=== PATIENT | male | born 1970 | race Two or more races ===

== ENCOUNTER 2021-11-26 21:59 | Emergency (ER) | payer SELFPAY ==
[~2021-11-26] VITALS: Ht 170.2 cm; Wt 81.2 kg
[2021-11-26 22:26] VITALS: BP 149/95
[2021-11-26 23:13] LABS: Eosinophils # (auto) 0.2 10 ^3/uL (0-0.8); Lymphocytes # (auto) 1.5 10 ^3/uL (0.4-5.4); Mean Corpuscular Hgb Conc. 34.3 g/dL (32.0-36.0); Nucleated Red Blood Cells % 0.1 %
[2021-11-26 23:15] LABS: Basophils # (auto) 0.2 10 ^3/uL (0-0.2); Basophils % (auto) 3.9 % (0.0-2.0); Eosinophils % (auto) 2.7 % (0.0-7.0); Hematocrit 49.3 % (41.0-53.0); Hemoglobin 16.9 g/dL (13.5-17.5); Lymphocytes % (auto) 24.1 % (10.0-50.0); Mean Corpuscular Hemoglobin 27.1 pg (28.0-32.0); Mean Corpuscular Volume 79.1 fL (80.0-100.0); Monocytes # (auto) 0.4 10 ^3/uL (0-1.3); Monocytes % (auto) 6.1 % (0.0-12.0); Neutrophils % (auto) 63.2 % (37.0-80.0); Red Blood Cells 6.24 10^6/uL (4.5-5.90); Red Cell Distribution Width 14.5 % (11.8-14.3); White Blood Cell 6.3 10^3/uL (4.4-10.8)
[2021-11-26 23:32] LABS: Albumin 4.1 g/dL (3.4-5.0); BUN/Creatinine Ratio 11.9; Calcium 9.5 mg/dL (8.5-10.1); Potassium 3.8 mmol/L (3.5-5.1)
[2021-11-26 23:34] LABS: Bilirubin, Total 0.9 mg/dL (0.2-1.0)
[2021-11-27 05:11] LABS: Urine Bacteria NONE SEEN /hpf (None Seen); Urine Blood Negative /uL (Negative); Urine Specific Gravity 1.041 (1.001-1.035); Urine WBC <1 /hpf (0 - 3)
[2021-11-27] MEDS ORDERED: ONDANSETRON ODT 4 MG TAB PO ONE (06:30)
[2021-11-27] MEDS ORDERED: FAMOTIDINE 20 MG TAB PO ONE (06:30)
[2021-11-27] MEDS ORDERED: LIDOCAINE VISCOUS 2% 15ML UD PO ONE (06:30)
[2021-11-27] MEDS ORDERED: ALUM & MAG HYDROX-SIMETH LIQ(MAALOX) 30 ML PO ONE (06:30)
== END 2021-11-27 10:56 | disposition left against medical advice (07) ==
LOC: ER 21:59
DX: R11.2 Nausea with vomiting, unspecified (principal); R42 Dizziness and giddiness; Z53.21 Procedure and treatment not carried out due to patient leaving prior to being seen by health care provider
CPT/HCPCS: 36415; 80053; 81001; 83735; 84484; 85025; 93005

== ENCOUNTER 2022-03-06 16:26 | Inpatient (IN) | payer SELFPAY ==
[~2022-03-06] VITALS: Ht 172.7 cm; Wt 86.1 kg
[2022-03-06 18:58] LABS: Urine Bacteria NONE SEEN /hpf (None Seen); Urine Blood Negative /uL (Negative); Urine Specific Gravity 1.034 (1.001-1.035); Urine WBC <1 /hpf (0 - 3)
[2022-03-06 20:18] LABS: Albumin 4.1 g/dL (3.4-5.0); Calcium 9.8 mg/dL (8.5-10.1); Potassium 3.6 mmol/L (3.5-5.1)
[2022-03-06 20:23] LABS: Bilirubin, Total 6.4 mg/dL (0.2-1.0); Total Protein 8.1 g/dL (6.4-8.2)
[2022-03-06 20:28] LABS: White Blood Cell 12.7 10^3/uL (4.4-10.8)
[2022-03-06 20:30] LABS: Hematocrit 50.9 % (41.0-53.0); Hemoglobin 16.8 g/dL (13.5-17.5); Mean Corpuscular Hemoglobin 25.8 pg (28.0-32.0); Mean Corpuscular Volume 78.2 fL (80.0-100.0); Red Blood Cells 6.51 10^6/uL (4.5-5.90); Red Cell Distribution Width 13.4 % (11.8-14.3)
[2022-03-06 20:34] LABS: Basophils % (manual) 0 (0.0-2.0); Blast Cells 0; Eosinophils % (manual) 0 (0-7); Metamyelocytes % 0; Myelocytes % 0; Promyelocytes % 0; Reactive Lymphocytes 0
[2022-03-06 20:53] LABS: Band Neutrophils % (manual) 23; Lymphocytes % (manual) 5 (10.0-50.0); Monocytes % (manual) 2 (0-12)
[2022-03-06] MEDS ORDERED: MORPHINE SULFATE INJ 2 MG/ml SYRG IM ONE (23:30)
[2022-03-07] MEDS ORDERED: PIPERACILLIN-TAZO 4.5GM 100 ML IV ONE (04:45)
[2022-03-07] MEDS ORDERED: SODIUM CHLORIDE 0.9% 1,000 ML IV ONE (04:45)
[2022-03-07] MEDS ORDERED: HYDROcodone-ACET 5/325MG TAB PO PRN (09:00)
[2022-03-07] MEDS ORDERED: DEXTROSE (50%) 50ML SYRG IV PRN (09:00)
[2022-03-07] MEDS ORDERED: ACETAMINOPHEN 325 MG TAB PO PRN (09:00)
[2022-03-07] MEDS ORDERED: DOCUSATE SOD 100 MG CAP PO PRN (09:00)
[2022-03-07] MEDS ORDERED: ONDANSETRON HCL 4 MG/2 ML VIAL IV PRN (09:00)
[2022-03-07] MEDS: SODIUM CHLORIDE 0.9% 1,000 ML IV SCH ×2 (09:28→17:22)
[2022-03-07] MEDS: ENOXAPARIN SOD 40 MG/0.4 ML SYRINGE SC SCH (10:00)
[2022-03-07] MEDS: ACCU-CHEK COMFORT CURVE STRIP VI SCH ×3 (11:53→21:21)
[2022-03-07] MEDS: InsuLIN REG 1unit/0.01ml Soln (100units/ml) SC SCH ×3 (11:54→21:22)
[2022-03-07] MEDS: metroNIDAZOLE 500MG/100ML 100 ML IV SCH ×2 (14:22→21:23)
[2022-03-07 16:50] VITALS: BP 138/88
[2022-03-07] MEDS ORDERED: ASPI-498 PO (17:56)
[2022-03-07] MEDS ORDERED: LEVEMIR SC (18:01)
[2022-03-07] MEDS ORDERED: LISI40TA11 PO (18:02)
[2022-03-07] MEDS ORDERED: ATOR40TA52 PO (18:04)
[2022-03-07] MEDS ORDERED: METF-372 PO (18:05)
[2022-03-07] MEDS ORDERED: EMPA1TAB PO (18:08)
[2022-03-07] MEDS ORDERED: LINA5TAB PO (18:48)
[2022-03-07 22:00] VITALS: BP 132/92
[2022-03-08] MEDS: SODIUM CHLORIDE 0.9% 1,000 ML IV SCH ×3 (01:40→17:06)
[2022-03-08 05:00] VITALS: BP 138/86
[2022-03-08] MEDS: metroNIDAZOLE 500MG/100ML 100 ML IV SCH ×3 (05:29→21:35)
[2022-03-08 06:14] LABS: Eosinophils # (auto) 0.1 10 ^3/uL (0-0.8); Eosinophils % (auto) 0.7 % (0.0-7.0); Lymphocytes % (auto) 5.3 % (10.0-50.0); Monocytes # (auto) 0.8 10 ^3/uL (0-1.3); Red Blood Cells 5.81 10^6/uL (4.5-5.90); Red Cell Distribution Width 13.4 % (11.8-14.3)
[2022-03-08] MEDS: ACCU-CHEK COMFORT CURVE STRIP VI SCH ×4 (06:14→21:38)
[2022-03-08 06:15] LABS: Basophils # (auto) 0.1 10 ^3/uL (0-0.2); Basophils % (auto) 0.4 % (0.0-2.0); Hemoglobin 14.8 g/dL (13.5-17.5); Lymphocytes # (auto) 0.8 10 ^3/uL (0.4-5.4); Mean Corpuscular Hemoglobin 25.5 pg (28.0-32.0); Mean Corpuscular Hgb Conc. 32.3 g/dL (32.0-36.0); Mean Corpuscular Volume 79.1 fL (80.0-100.0); Monocytes % (auto) 5.7 % (0.0-12.0); Neutrophils # (auto) 12.5 10 ^3/uL (1.6-8.6); Neutrophils % (auto) 87.9 % (37.0-80.0); White Blood Cell 14.2 10^3/uL (4.4-10.8)
[2022-03-08] MEDS: InsuLIN REG 1unit/0.01ml Soln (100units/ml) SC SCH ×4 (06:19→21:45)
[2022-03-08] MEDS: MORPHINE SULFATE INJ 2 MG/ml SYRG IV PRN ×3 (06:21→21:48)
[2022-03-08 06:31] LABS: Albumin 3.1 g/dL (3.4-5.0); Calcium 8.5 mg/dL (8.5-10.1); Potassium 3.8 mmol/L (3.5-5.1)
[2022-03-08 06:33] LABS: BUN/Creatinine Ratio 21.6
[2022-03-08 06:35] LABS: Bilirubin, Total 2.1 mg/dL (0.2-1.0); Total Protein 6.2 g/dL (6.4-8.2)
[2022-03-08] MEDS: ENOXAPARIN SOD 40 MG/0.4 ML SYRINGE SC SCH (08:54)
[2022-03-08 09:00] VITALS: BP 128/87
[2022-03-08] MEDS ORDERED: ceFAZolin 1GM/50ML 100 ML IV ONE (10:06)
[2022-03-08 10:12] LABS: Partial Thromboplastin Time 31.1 sec (24.6-33.4)
[2022-03-08] MEDS ORDERED: MIDAZOLAM HCL 2MG/2ML 2ml VIAL (1mg/ml) ONE (10:13)
[2022-03-08] MEDS ORDERED: HYDROmorphone HCL 2 MG/ML VL/or syr ONE (10:13)
[2022-03-08] MEDS ORDERED: PROPOFOL 10 MG/ML 20 ML IV ONE (10:15)
[2022-03-08] MEDS ORDERED: METOCLOPRAMIDE HCL 5MG/ml INJ 2ml VIAL ONE (10:52)
[2022-03-08] MEDS ORDERED: ONDANSETRON HCL 4 MG/2 ML VIAL ONE (10:52)
[2022-03-08] MEDS ORDERED: EPINEPHrine HCL 1 MG/1 ML AMP ONE (11:10)
[2022-03-08] MEDS ORDERED: BUPIVACAINE HCL 0.25% P/F 10 ML VIAL ONE (11:10)
[2022-03-08] MEDS ORDERED: GLYCOPYRROLATE 0.2 MG/ML 1ML VIAL ONE (11:14)
[2022-03-08] MEDS ORDERED: ONDANSETRON HCL 4 MG/2 ML VIAL IV PRN (12:15)
[2022-03-08] MEDS ORDERED: HYDROmorphone HCL 2 MG/ML VL/or syr IV PRN ×2 (12:15)
[2022-03-08] MEDS ORDERED: fentaNYL CITRATE 100 MCG/2 ML VL IV PRN (12:15)
[2022-03-08 13:00] VITALS: BP 150/88
[2022-03-08] MEDS ORDERED: LISINOPRIL 10 MG TAB PO ONE (13:45)
[2022-03-08 16:50] VITALS: BP 143/98
[2022-03-08] MEDS: LISINOPRIL 10 MG TAB PO SCH (21:37)
[2022-03-08 22:00] VITALS: BP 150/99
[2022-03-09] MEDS: SODIUM CHLORIDE 0.9% 1,000 ML IV SCH ×2 (03:45→10:12)
[2022-03-09 05:00] VITALS: BP 154/93
[2022-03-09 05:26] LABS: Basophils # (auto) 0 10 ^3/uL (0-0.2); Basophils % (auto) 0.3 % (0.0-2.0); Eosinophils # (auto) 0.1 10 ^3/uL (0-0.8); Eosinophils % (auto) 0.6 % (0.0-7.0); Hematocrit 40.2 % (41.0-53.0); Hemoglobin 13.3 g/dL (13.5-17.5); Lymphocytes # (auto) 0.8 10 ^3/uL (0.4-5.4); Lymphocytes % (auto) 9.2 % (10.0-50.0); Mean Corpuscular Hgb Conc. 33.1 g/dL (32.0-36.0); Mean Corpuscular Volume 78.5 fL (80.0-100.0); Monocytes # (auto) 0.5 10 ^3/uL (0-1.3); Monocytes % (auto) 5.2 % (0.0-12.0); Neutrophils # (auto) 7.6 10 ^3/uL (1.6-8.6); Neutrophils % (auto) 84.7 % (37.0-80.0); Nucleated Red Blood Cells % 0.1 %; Red Blood Cells 5.12 10^6/uL (4.5-5.90); Red Cell Distribution Width 13.3 % (11.8-14.3)
[2022-03-09 05:43] LABS: Calcium 7.9 mg/dL (8.5-10.1); Potassium 3.3 mmol/L (3.5-5.1)
[2022-03-09] MEDS: metroNIDAZOLE 500MG/100ML 100 ML IV SCH ×3 (05:45→22:00)
[2022-03-09 05:49] LABS: Albumin 2.5 g/dL (3.4-5.0); BUN/Creatinine Ratio 14.3; Bilirubin, Total 1.6 mg/dL (0.2-1.0)
[2022-03-09] MEDS: ACCU-CHEK COMFORT CURVE STRIP VI SCH ×4 (05:50→22:01)
[2022-03-09] MEDS: InsuLIN REG 1unit/0.01ml Soln (100units/ml) SC SCH ×4 (05:57→22:16)
[2022-03-09] MEDS: cefTRIAXone 1GM/50ML D5W 50 ML IV SCH (08:54)
[2022-03-09] MEDS: ENOXAPARIN SOD 40 MG/0.4 ML SYRINGE SC SCH (08:54)
[2022-03-09] MEDS: LISINOPRIL 10 MG TAB PO SCH ×2 (08:54→22:00)
[2022-03-09 09:00] VITALS: BP 153/100
[2022-03-09] MEDS: MORPHINE SULFATE INJ 2 MG/ml SYRG IV PRN (11:21)
[2022-03-09 13:00] VITALS: BP 156/94
[2022-03-09] MEDS ORDERED: POTASSIUM CHL 20MEQ/100ML 100 ML IV ONE (15:00)
[2022-03-09 16:53] VITALS: BP 160/100
[2022-03-09 22:00] VITALS: BP 155/94
[2022-03-10 05:00] VITALS: BP 154/97
[2022-03-10] MEDS: ACCU-CHEK COMFORT CURVE STRIP VI SCH ×4 (06:04→20:58)
[2022-03-10] MEDS: metroNIDAZOLE 500MG/100ML 100 ML IV SCH ×3 (06:04→20:57)
[2022-03-10] MEDS: InsuLIN REG 1unit/0.01ml Soln (100units/ml) SC SCH ×4 (06:05→21:09)
[2022-03-10] MEDS: ENOXAPARIN SOD 40 MG/0.4 ML SYRINGE SC SCH (08:36)
[2022-03-10] MEDS: cefTRIAXone 1GM/50ML D5W 50 ML IV SCH (08:36)
[2022-03-10] MEDS: hydrALAZINE HCL 20 MG/ML VL IV PRN (08:37)
[2022-03-10] MEDS: LISINOPRIL 10 MG TAB PO SCH ×2 (08:37→20:57)
[2022-03-10 09:00] VITALS: BP 150/90
[2022-03-10] MEDS: MORPHINE SULFATE INJ 2 MG/ml SYRG IV PRN ×2 (11:00→20:55)
[2022-03-10 13:00] VITALS: BP 140/88
[2022-03-10 16:23] VITALS: BP 145/89
[2022-03-10 22:00] VITALS: BP 156/98
[2022-03-11 05:00] VITALS: BP 157/99
[2022-03-11] MEDS: metroNIDAZOLE 500MG/100ML 100 ML IV SCH ×2 (06:07→13:32)
[2022-03-11] MEDS: hydrALAZINE HCL 20 MG/ML VL IV PRN (06:07)
[2022-03-11] MEDS: ACCU-CHEK COMFORT CURVE STRIP VI SCH ×2 (06:21→12:20)
[2022-03-11] MEDS: InsuLIN REG 1unit/0.01ml Soln (100units/ml) SC SCH ×2 (06:24→12:20)
[2022-03-11 09:00] VITALS: BP 131/88
[2022-03-11] MEDS: cefTRIAXone 1GM/50ML D5W 50 ML IV SCH (09:33)
[2022-03-11] MEDS: LISINOPRIL 10 MG TAB PO SCH (09:33)
[2022-03-11] MEDS: ENOXAPARIN SOD 40 MG/0.4 ML SYRINGE SC SCH (09:33)
[2022-03-11 13:00] VITALS: BP 141/92
[2022-03-11] MEDS ORDERED: LEVEMIR SC (13:27)
[2022-03-11] MEDS: MORPHINE SULFATE INJ 2 MG/ml SYRG IV PRN (13:27)
[2022-03-11] MEDS ORDERED: METR500T PO (13:27)
[2022-03-11 13:55] VITALS: BP 131/88
== END 2022-03-11 14:49 | disposition home or self-care (01) | DRG 854 ==
LOC: ER 16:28 → OVERFLOW 03-07 08:56 → WEST WING 03-07 16:03
PROVIDERS: ADMIT Internal Medicine; ATTEND Internal Medicine
PROC: 0FT44ZZ Resection of Gallbladder, Percutaneous Endoscopic Approach (ICD-10-PCS; principal; 2022-03-08 10:22)
DX: A41.9 Sepsis, unspecified organism (principal); E87.1 Hypo-osmolality and hyponatremia; K80.00 Calculus of gallbladder with acute cholecystitis without obstruction; E11.65 Type 2 diabetes mellitus with hyperglycemia; I10 Essential (primary) hypertension; N40.0 Benign prostatic hyperplasia without lower urinary tract symptoms; K82.8 Other specified diseases of gallbladder; R74.01 Elevation of levels of liver transaminase levels; Z20.822 Contact with and (suspected) exposure to COVID-19; Z82.49 Family history of ischemic heart disease and other diseases of the circulatory system; Z83.3 Family history of diabetes mellitus
CPT/HCPCS: 36415; 74176; 76705; 80053; 81001; 82247; 82962; 83690; 85007; 85025; 85027; 85610; 85730; 86850; 86900; 86901; 87040; 93005; 96361; 96365; 96375; G0378; J0171; J0690; J0696; J1815; J2250; J2405; J2543; J2704; J3480; J3490

== ENCOUNTER 2025-04-28 10:46 | Day surgery (SDC) | payer MEDICAID ==
[2025-04-27 09:26] LABS: Nucleated Red Blood Cells % 0.1 %
[2025-04-27 09:28] LABS: Hematocrit 44.7 % (41.0-53.0); Hemoglobin 15.1 g/dL (13.5-17.5); Mean Corpuscular Hemoglobin 25.7 pg (28.0-32.0); Mean Corpuscular Volume 76.2 fL (80.0-100.0)
[2025-04-27 09:48] LABS: Alanine Aminotransferase 24 U/L (7-40); Albumin 4.6 g/dL (3.2-4.8); Alkaline Phosphatase 98 U/L (46-116); Anion Gap 10 (5-15); BUN/Creatinine Ratio 14.0 (10.0-20.0); Bilirubin, Total 0.5 mg/dL (0.2-1.0); Blood Urea Nitrogen 14 mg/dL (9-23); Carbon Dioxide 27 mmol/L (20-31); Chloride 106 mmol/L (98-107); Potassium 3.9 mmol/L (3.5-5.1); Sodium 143 mmol/L (136-145); Total Protein 7.3 g/dL (5.7-8.2)
[2025-04-27 10:14] LABS: INR 0.97 (0.9-1.15); Partial Thromboplastin Time 30.5 SEC (24.5-34.5); Prothrombin Time 10.3 sec (9.3-11.8)
[2025-04-27 10:38] LABS: Calcium 8.7 mg/dL (8.7-10.4); Glucose 138 mg/dL (74-106)
[~2025-04-28] VITALS: Ht 170.2 cm; Wt 90.7 kg
[~2025-04-28 10:46] MED LIST: ASPI-498 PO; ATOR40TA52 PO; EMPA1TAB PO; HYDR-4902 PO; LEVEMIR SC; LEVO500T31 PO; LINA5TAB PO; LISI40TA16 PO; METF-372 PO; METR500T PO
[2025-04-28] MEDS: MIDAZOLAM HCL 5 MG/ML-1ML VIAL ONE (13:56)
[2025-04-28] MEDS: fentaNYL CITRATE 100 MCG/2 ML VL ONE (13:56)
[2025-04-28 14:16] VITALS: PULSE 79; RESP 16; TEMP 99.2; O2SAT 97
--- NOTE | 2025-04-28 14:21 | DVHNC2 ---
Procedure - PROCEDURE DATE: 04/28/2025 PROCEDURE PERFORMED BY: Kristopher Adams MD REFERRING PROVIDER: [facility], NO PCP GIVEN AND PATIENT DOES NOT RECALL PROCEDURE PERFORMED: 1. COLONOSCOPY WITH MODERATE SEDATION PRE-PROCEDURE DIAGNOSIS: 1. COLON CANCER SCREENING POSTPROCEDURE DIAGNOSIS: 1. NORMAL COLONOSCOPY INDICATIONS FOR PROCEDURE: The patient is A 54-year-old male who presents for outpatient colonoscopy for screening MEDICATIONS USED: 5 mg of Versed IV and 100 mcg of fentanyl IV DETAILS OF THE PROCEDURE: Informed consent was obtained after risks benefits and alternatives were discussed at length with the patient. The patient gave consent to the procedure as well as the medication used for sedation. The patient was placed in left lateral decubitus position. Digital rectal exam showed NO ABNORMALITIES. An Olympus PEDIATRIC colonoscope was inserted into the rectum and advanced to the cecum. The cecum was identified by the ileocecal valve and the appendiceal orifice. The scope was then withdrawn. [place] bowel prep score of 7 was noted. There were no polyps, masses, strictures, or arteriovenous malformation seen. More than 6 minutes withdrawal time was noted. The patient tolerated the procedure well. START TIME: 1404 CECUM TIME: 1407 END TIME 1414 IMPRESSION: 1. NORMAL COLONOSCOPY IN AN AVERAGE RISK PATIENT RECOMMENDATIONS: 1. Follow up with the primary care physician 2. Repeat colonoscopy in 10 years unless otherwise indicated by symptoms or fa consuelo history KRISTOPHER ADAMS MD Apr 28, 2025 14:21
[2025-04-28 14:45] VITALS: BP 143/86; PULSE 86; RESP 16; O2SAT 99
== END 2025-04-28 15:00 | disposition home or self-care (01) ==
LOC: EDUNIT# → SUR 10:46
PROVIDERS: ATTEND Specialist
DX: Z12.11 Encounter for screening for malignant neoplasm of colon (principal); Z90.49 Acquired absence of other specified parts of digestive tract
CPT/HCPCS: 36415; 45378; 80053; 85025; 85610; 85730; J2250; J3010

== ENCOUNTER 2025-06-10 00:01 | Emergency (ER) | payer MEDICAID ==
[~2025-06-10] VITALS: Ht 177.8 cm; Wt 86.0 kg
--- NOTE | 2025-06-10 00:13 | ECG ---
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
--- NOTE | 2025-06-10 00:23 | ED.PDOC ---
History of Present Illness HPI Comments 54-year-old male who came to ER for generalized weakness. Patient has a history of hypertension and diabetes. States for the past 2 hours, he has been feeling generally weak and dizzy. Denies any chest pains or shortness of breath. Denies any nausea or vomiting. Upon arrival the paramedics patient's blood sugar was 64. Chief Complaint: General Weakness Time Seen by MD: 00:22 Primary Care Provider: NONE Reviewed Notes: Master Technician Notes Allergies: Coded Allergies: NO KNOWN ALLERGIES (Unverified , 03/07/22) Home Meds Active Scripts Hydrocodone-Acetaminophen (Hydrocodone Bitartrate/AC 5-325 mg) 1 Tab Tab, 1 TAB PO TID PRN, #30 TAB Prov:PURVI JOSEPH MD 04/03/22 Metronidazole (Flagyl) 500 Mg Tab, 500 MG PO TID, #30 TAB Prov:PURVI JOSEPH MD 04/03/22 Levofloxacin (Levaquin) 500 Mg Tab, 500 MG PO DAILY, #10 TAB Prov:PURVI JOSEPH MD 04/03/22 Metronidazole (Flagyl) 500 Mg Tab, 500 MG PO Q8HR, #21 TAB Prov:JOIE HIGGINS MD 03/11/22 Insulin Detemir (Levemir) Inj, 40 UNITS SC DAILY for 30 Days, #30 INJ Prov:JOIE HIGGINS MD 03/11/22 Reported Medications Linagliptin Base (TRADJENTA) 5 Mg Tab, 1 TAB PO DAILY, #90 TAB 1 Refill 03/07/22 Empagliflozin (Jardiance) 10 Mg Tab, 10 MG PO, TAB 03/07/22 Metformin Hydrochloride (Metformin Hcl) 1,000 Mg Tab, 1000 MG PO DAILY, TAB 03/07/22 Atorvastatin Calcium (ATORVASTATIN CALCIUM) 40 Mg Tab, 1 TAB PO DAILY, #30 TAB 5 Refills 03/07/22 Lisinopril (Lisinopril) 40 Mg Tab, 1 TAB PO DAILY, #30 TAB 5 Refills 03/07/22 Aspirin (ASPIRIN 81) 81 Mg Tab, 81 MG PO DAILY, TAB 03/07/22 Information Source: Patient, Emergency Med Personnel Mode of Arrival: EMS Past Medical History PAST MEDICAL HISTORY: DM, HTN Surgical History: Denies all surgeries Family History Family History: Unknown Social History Smoker: Non-Smoker Alcohol: Denies ETOH Use Drugs: Denies Drug Use Lives In: Home Constitutional: reports: weakness; denies: chills, diaphoresis, fatigue, fever, malaise, sweats, others EENTM: denies: blurred vision, double vision, ear bleeding, ear discharge, ear drainage, ear pain, ear ringing, eye pain, eye redness, hearing loss, mouth pain, mouth swelling, nasal discharge, nose bleeding, nose congestion, nose pain, photophobia, tearing, throat pain, throat swelling, voice changes, others Respiratory: denies: cough, hemoptysis, orthopnea, SOB at rest, shortness of breath, SOB with excertion, stridor, wheezing, others Cardiovascular: denies: chest pain, dizzy spells, diaphoresis, Dyspnea on exertion, edema, irregular heart beat, left arm pain, lightheadedness, palpitations, PND, syncope, others Gastrointestinal: denies: abdomen distended, abdominal pain, blood streaked bowels, constipated, diarrhea, dysphagia, difficulty swallowing, hematemesis, melena, nausea, poor appetite, poor fluid intake, rectal bleeding, rectal pain, vomiting, others Genitourinary: denies: burning, dysuria, flank pain, frequency, hematuria, incontinence, penile discharge, penile sore, pain, testicle pain, testicle swelling, urgency, others Neurological: reports: dizziness, weakness; denies: fainting, headache, left sided numbness, left sided weakness, numbness, paresthesia, pre-existing deficit, right sided numbness, right sided weakness, seizure, speech problems, tingling, tremors, others Musculoskeletal: denies: back pain, gout, joint pain, joint swelling, muscle pain, muscle stiffness, neck pain, others Integumetry: denies: bruises, change in color, change in hair/nails, dryness, laceration, lesions, lumps, rash, wounds, others Allergic/Immunocompromised: denies: Difficulty Healing, Frequent Infections, Hives, Itching, others Hematologic/Lymphatic: denies: anemia, blood clots, easy bleeding, easy bruising, swollen glands, others Endocrine: denies: excessive hunger, excessive sweating, excessive thirst, excessive urination, flushing, intolerance to cold, intolerance to heat, unexplained weight gain, unexplained weight loss, others Psychiatric: denies: anxiety, bipolar disorder, depression, hopeless, panic disorder, schizophrenia, sleepless, suicidal, others Physical Exam General Appearance: No Apparent Distress, Normal HEENT: Normal ENT Inspection, Pharynx Normal, TMs Normal Neck: Full Range of Motion, Non-Tender, Normal, Normal Inspection Respiratory: Chest Non-Tender, Lungs Clear, No Accessory Muscle Use, No Respiratory Distress, Normal Breath Sounds Cardiovascular: No Edema, No JVD, No Murmur, No Gallop, Normal Peripheral Pulses, Regular Rate/Rhythm Breast Exam: Deferred Gastrointestinal: No Organomegaly, Non Tender, No Pulsatile Mass, Normal Bowel Sounds, Soft Genitalia: Deferred Pelvic: Deferred Rectal: Deferred Extremities: No calf tenderness, Normal capillary refill, Normal inspection, Normal range of motion, Non-tender, No pedal edema Musculoskeletal : Apperance: Normal Neurologic: Alert, tree feller II-XII nml as Tested, No Motor Deficits, Normal Affect, Normal Mood, No Sensory Deficits Cerebellar Function: Normal Reflexes: Normal Skin: Dry, Normal Color, Warm Lymphatic: No Adenopathy Was a procedure done? Was a procedure done?: No Differential Dx Considerations may include: Anemia, electrolyte imbalance, hypoglycemia, urinary tract infection X-Ray, Labs, Meds, VS Vital Signs Date Time Temp Pulse Resp B/P (MAP) Pulse Ox O2 Delivery O2 Flow Rate FiO2 06/10/25 00:08 73 06/10/25 00:05 97.5 73 15 157/97 98 97.5 Lab Test 06/10/25 00:15 06/10/25 00:14 Range/Units POC Glucose 162 H 70-106 mg/dl White Blood Count 7.7 4.4-10.8 10^3/uL Red Blood Count 5.61 4.5-5.90 10^6/uL Hemoglobin 14.0 13.5-17.5 g/dL Hematocrit 42.3 41.0-53.0 % Mean Corpuscular Volume 75.3 L 80.0-100.0 fL Mean Corpuscular Hemoglobin 24.9 L 28.0-32.0 pg Mean Corpuscular Hemoglobin Concent 33.1 32.0-36.0 g/dL Red Cell Distribution Width 14.7 H 11.8-14.3 % Platelet Count 240 140-450 10^3/uL Mean Platelet Volume 6.7 L 6.9-10.8 fL Neutrophils (%) (Auto) 62.1 37.0-80.0 % Lymphocytes (%) (Auto) 23.8 10.0-50.0 % Monocytes (%) (Auto) 10.4 0.0-12.0 % Eosinophils (%) (Auto) 2.8 0.0-7.0 % Basophils (%) (Auto) 0.9 0.0-2.0 % Neutrophils # (Auto) 4.8 1.6-8.6 10 ^3/uL Lymphocytes # (Auto) 1.8 0.4-5.4 10 ^3/uL Monocytes # (Auto) 0.8 0-1.3 10 ^3/uL Eosinophils # (Auto) 0.2 0-0.8 10 ^3/uL Basophils # (Auto) 0.1 0-0.2 10 ^3/uL Nucleated Red Blood Cells 0.0 % Sodium Level 140 136-145 mmol/L Potassium Level 2.9 L 3.5-5.1 mmol/L Chloride Level 103 98-107 mmol/L Carbon Dioxide Level 26 20-31 mmol/L Anion Gap 11 5-15 Blood Urea Nitrogen 12 9-23 mg/dL Creatinine 1.07 0.700-1.30 mg/dL Glomerular Filtration Rate Calc 82 >90 mL/min BUN/Creatinine Ratio 11.2 10.0-20.0 Serum Glucose 174 H 74-106 mg/dL Calcium Level 8.5 L 8.7-10.4 mg/dL Troponin I High Sensitivity 30 </=54 ng/L Time of 1ST Reevaluation: 00:20 Reevaluation 1ST: Unchanged Patient Education/Counseling: Diagnosis, Treatment, Prognosis, Need For Follow Up Family Education/Counseling: Diagnosis, Treatment, Prognosis, Need For Follow Up, No Family Present Comments Patient is alert oriented resting comfortably with and daughter. His workup shows he has hypokalemic this may explain his feeling of fatigue and weakness. Patient will be given K-Dur and he is stable for discharge SEPSIS Sepsis Screen Date sepsis recognized/suspect: Jun 10, 2025 Time Sepsis recognized/suspect: 0011 Recent Procedure: No On Antibiotic Therapy: No Respiratory Rate >20: No Heart Rate >90: No Temp<36 C (96.8 F) or >38.3 C: No SBP <90 or MAP <65 mmHG: No New Acute Mental Status Change: No Is the patient on CPAP, BIPAP,: No Physician Orders Urinalysis (06/10/25 00:08) Vital Signs Date Time Temp Pulse Resp B/P (MAP) Pulse Ox O2 Delivery O2 Flow Rate FiO2 06/10/25 00:08 73 06/10/25 00:05 97.5 73 15 157/97 98 97.5 Laboratory Tests Test 06/10/25 00:14 White Blood Count 7.7 10^3/uL (4.4-10.8) Departure 1 Departure Time of Disposition: 01:32 Impression: Primary Impression: Hypokalemia Additional Impression: Generalized weakness Disposition: 01 HOME / SELF CARE / HOMELESS Condition: Good Discharged With: Self, Relative, Spouse Critical Care Note Critical Care Time?: No Stability Stability form required: No Heart Score Heart Score: Heart Score Response (Comments) Value History N/A 0 EKG N/A 0 Age N/A 0 Risk Factors N/A 0 Troponin N/A 0 Total 0 I personally scribed for SONNY BURKETT MD ([email or web address]) on 06/10/25 at 00:23. El ectronically submitted by Ryan Coyle ([email or web address]). SONNY BURKETT MD Jun 10, 2025 00:23
[2025-06-10 00:28] LABS: Hematocrit 42.3 % (41.0-53.0); Hemoglobin 14.0 g/dL (13.5-17.5); Mean Corpuscular Hemoglobin 24.9 pg (28.0-32.0); Mean Corpuscular Volume 75.3 fL (80.0-100.0); Nucleated Red Blood Cells % 0.0 %
[2025-06-10 00:35] LABS: Chloride 103 mmol/L (98-107); Sodium 140 mmol/L (136-145)
[2025-06-10 00:36] LABS: Anion Gap 11 (5-15); Carbon Dioxide 26 mmol/L (20-31)
[2025-06-10 00:42] LABS: BUN/Creatinine Ratio 11.2 (10.0-20.0); Blood Urea Nitrogen 12 mg/dL (9-23)
[2025-06-10 00:43] LABS: Calcium 8.5 mg/dL (8.7-10.4); Glucose 174 mg/dL (74-106); Potassium 2.9 mmol/L (3.5-5.1)
[2025-06-10] MEDS: POTASSIUM CHL 20 Meq TABLET PO ONE (03:05)
[2025-06-10 03:11] LABS: Urine Protein, UAD TRACE (Negative)
[2025-06-10 03:28] VITALS: BP 145/94; PULSE 76; RESP 14; TEMP 97.8; O2SAT 98
== END 2025-06-10 03:32 | disposition home or self-care (01) ==
LOC: EDBD 00:01 → EDUNIT# 00:01 → ER 00:01
DX: E87.6 Hypokalemia (principal); R53.1 Weakness; I10 Essential (primary) hypertension; E11.9 Type 2 diabetes mellitus without complications; Z79.899 Other long term (current) drug therapy
CPT/HCPCS: 36415; 80048; 81001; 82947; 82962; 84484; 85025; 93005